=== PATIENT | male | born 1985 | race Caucasian/White ===

== ENCOUNTER 2023-05-31 19:14 | Emergency (ER) | payer BC ==
[~2023-05-31] VITALS: Ht 190.5 cm; Wt 95.3 kg
[2023-05-31 19:29] VITALS: BP_SYST 118; PULSE 66; RESP 18; TEMP 97.5; O2SAT 98
[2023-05-31 23:06] LABS: BASOPHILS % (AUTO) 0.6 % (0.0-2.0); EOSINOPHILS # (AUTO) 0.3 K/uL (0.0-0.4); EOSINOPHILS % (AUTO) 4.3 % (0.0-4.0); HEMATOCRIT 43.9 % (36-54); HEMOGLOBIN 14.7 g/dL (14.0-18.0); LYMPHOCYTES # (AUTO) 2.3 K/uL (1.0-5.5); LYMPHOCYTES % (AUTO) 38.6 % (20.5-51.5); MEAN CORPUSCULAR HEMOGLOBIN 30 pg (27-31); MEAN CORPUSCULAR HGB CONC 33 % (32-36); MEAN CORPUSCULAR VOLUME 91 fL (79.0-98.0); MONOCYTES # (AUTO) 0.5 K/uL (0.0-1.0); MONOCYTES % (AUTO) 9.2 % (1.7-9.3); NEUTROPHILS # (AUTO) 2.8 K/uL (1.8-7.7); NEUTROPHILS % (AUTO) 47.3 % (40.0-70.0); PLATELET COUNT (AUTO) 274 K/uL (130-430); RED BLOOD CELL COUNT(AUTO) 4.84 MIL/uL (4.2-6.2); RED CELL DISTRIBUTION WIDTH 13.4 % (9.0-15.0); WHITE BLOOD COUNT (AUTO) 5.8 K/uL (4.8-10.8)
[2023-05-31 23:33] LABS: ANION GAP 8 (5-15); CALCIUM 9.1 mg/dL (8.4-11.0); CARBON DIOXIDE 30 mmol/L (23-29); CHLORIDE 104 mmol/L (98-107); CREATININE 0.95 mg/dL (0.55-1.30); GFR AFRICAN AMERICAN 114 mL/min (>90); GLUCOSE 89 mg/dL (74-106); POTASSIUM 4.7 mmol/L (3.5-5.1); SODIUM SERUM 142 mmol/L (136-145); UREA NITROGEN, BLOOD 22 mg/dL (8-21)
[2023-05-31 23:39] LABS: ALANINE AMINOTRANSFERASE 29 U/L (12-78); ALBUMIN 4.2 g/dL (3.4-4.8); ASPARTATE AMINOTRANSFERASE 16 U/L (10-37); TOTAL BILIRUBIN 0.5 mg/dL (0.0-1.0)
[2023-05-31 23:56] LABS: GFR NON AFRICAN-AMERICAN 94 mL/min (>90)
[2023-06-01 00:20] VITALS: BP_SYST 98; PULSE 54; RESP 14; TEMP 98; O2SAT 97
== END 2023-06-01 00:20 | disposition home or self-care (01) ==
LOC: SED 19:14
DX: R07.9 Chest pain, unspecified (principal); R53.83 Other fatigue; Z79.899 Other long term (current) drug therapy
CPT/HCPCS: 36415; 71045; 80053; 84484; 85025; 93005; 99285